=== PATIENT | female | born 2000 | race Caucasian/White ===

== ENCOUNTER 2018-10-27 07:21 | Inpatient (IN) | payer MEDICAID ==
[2018-10-27] MEDS ORDERED: AMPICILLIN 2 GM/NS (PMX) 100 ML (10:07)
[2018-10-27] MEDS ORDERED: MISOPROSTOL 200 MCG TAB PR ×2 (10:30→22:00)
[2018-10-27] MEDS ORDERED: METHYLERGONOVINE 0.2 MG INJ IM ×2 (10:30→22:00)
[2018-10-27] MEDS ORDERED: OXYTOCIN 30 UNITS/LR 500 ML IV ×2 (10:30→22:00)
[2018-10-27] MEDS ORDERED: LIDOCAINE 1% (MPF) 30 ML INJ INJ (10:30)
[2018-10-27] MEDS ORDERED: BUTORPHANOL 2 MG INJ IV (10:30)
[2018-10-27] MEDS ORDERED: CARBOPROST 250 MCG INJ IM ×2 (10:30→22:00)
[2018-10-27 10:56] LABS: AMPHETAMINE/METHAMPHETAMINE Negative (NEGATIVE); BARBITURATES Negative (NEGATIVE); BENZODIAZEPINES Negative (NEGATIVE); CANNABINOIDS Negative (NEGATIVE); COCAINE Negative (NEGATIVE); OPIATES Negative (NEGATIVE)
[2018-10-27] MEDS ORDERED: FENTAnyl 2MCG/ML-ROPIV 0.2% 100 ML BAG EPI (11:00)
[2018-10-27] MEDS ORDERED: NALOXONE (0.4 MG/ML) INJ IV (11:00)
[2018-10-27] MEDS ORDERED: ONDANSETRON 4 MG INJ IV (11:00)
[2018-10-27] MEDS ORDERED: DIPHENHYDRAMINE 50 MG INJ IV (11:00)
[2018-10-27] MEDS: LACTATED RINGER'S 1,000 ML IV (11:21)
[2018-10-27] MEDS: AMPICILLIN 2 GM/NS (PMX) 100 ML IV (11:21)
[2018-10-27] MEDS: OXYTOCIN 30 UNITS/LR 500 ML IV ×3 (11:22→19:59)
[2018-10-27 12:37] LABS: ADD MAN DIFF? NO
[2018-10-27 12:38] LABS: WHITE BLOOD COUNT 11.7 10^3/ul (4.8-10.8)
[2018-10-27 12:38] LABS: BASOPHILS % 0.1 % (0.0-2.0); HEMATOCRIT 34.9 % (37.0-47.0); HEMOGLOBIN 11.1 g/dl (12.0-16.0); LYMPHOCYTES # 0.8 10^3/ul (0.8-2.9); LYMPHOCYTES % 6.7 % (18.0-55.0); MEAN CORPUSCULAR HEMOGLOBIN 27.6 pg (29.0-33.0); MEAN CORPUSCULAR HGB CONC 31.8 g/dl (32.0-37.0); MEAN CORPUSCULAR VOLUME 86.8 fl (72.0-104.0); MEAN PLATELET VOLUME 10.7 fl (7.4-10.4); MONOCYTE # 0.5 10^3/ul (0.3-0.9); MONOCYTES % 4.6 % (0.0-13.0); NEUTROPHIL # 10.3 10^3/ul (1.6-7.5); NEUTROPHILS % 88.1 % (30.0-74.0); PLATELET COUNT 285 10^3/UL (140-415); RED BLOOD COUNT 4.02 10^6/ul (4.20-5.40); RED CELL DISTRIBUTION WIDTH 12.9 % (11.5-14.5)
[2018-10-27 13:00] LABS: INR 0.96; PROTIME 12.9 Sec (11.9-14.9)
[2018-10-27 13:01] LABS: PARTIAL THROMBOPLASTIN TIME 25.8 Sec (23.0-35.0)
[2018-10-27 14:54] LABS: HEPATITIS B SURFACE ANTIGEN NEGATIVE (NEGATIVE)
[2018-10-27] MEDS: AMPICILLIN 1 GM/NS (PMX) 50 ML IV ×2 (14:56→18:55)
[2018-10-27 15:57] LABS: RAPID PLASMA REAGIN NONREACTIVE (NR)
[2018-10-27] MEDS: IBUPROFEN 600 MG TAB PO (20:43)
[2018-10-27] MEDS: LACTATED RINGER'S 1,000 ML IV* (21:43)
[2018-10-27] MEDS ORDERED: ACETAMINOPHEN 325 MG TAB PO (22:00)
[2018-10-27] MEDS ORDERED: SENNA/DOCUSATE NA (8.6MG/50MG) TAB PO (22:00)
[2018-10-27] MEDS ORDERED: HYDROCODONE/APAP (5/325) TAB PO (22:00)
[2018-10-27] MEDS ORDERED: MAGNESIUM HYDROXIDE 30ML CUP PO (22:00)
[2018-10-27] MEDS ORDERED: DIPHENHYDRAMINE 25 MG CAP PO (22:00)
[2018-10-27] MEDS ORDERED: ZOLPIDEM 5 MG TAB PO (22:00)
[2018-10-27] MEDS: IBUPROFEN 800 MG TAB PO (23:24)
[2018-10-27] MEDS: WITCH HAZEL/GLYCERIN PAD PR (23:24)
[2018-10-27] MEDS: BENZOCAINE 20% 56 ML SPRAY TOP (23:24)
[2018-10-28] MEDS: OXYTOCIN 30 UNITS/LR 500 ML IV (00:32)
[2018-10-28] MEDS: LACTATED RINGER'S 1,000 ML IV* ×2 (05:43→13:43)
[2018-10-28] MEDS: IBUPROFEN 800 MG TAB PO ×4 (05:44→23:45)
[2018-10-28 06:45] LABS: ADD MAN DIFF? NO
[2018-10-28 06:59] LABS: WHITE BLOOD COUNT 13.1 10^3/ul (4.8-10.8)
[2018-10-28 06:59] LABS: BASOPHILS % 0.2 % (0.0-2.0); EOSINOPHILS # 0.1 10^3/ul (0.0-0.5); EOSINOPHILS % 0.4 % (0.0-7.0); HEMATOCRIT 29.9 % (37.0-47.0); HEMOGLOBIN 9.9 g/dl (12.0-16.0); LYMPHOCYTES # 1.7 10^3/ul (0.8-2.9); LYMPHOCYTES % 13.2 % (18.0-55.0); MEAN CORPUSCULAR HEMOGLOBIN 27.4 pg (29.0-33.0); MEAN CORPUSCULAR HGB CONC 33.1 g/dl (32.0-37.0); MEAN CORPUSCULAR VOLUME 82.8 fl (72.0-104.0); MONOCYTE # 1.4 10^3/ul (0.3-0.9); MONOCYTES % 10.5 % (0.0-13.0); NEUTROPHIL # 9.9 10^3/ul (1.6-7.5); NEUTROPHILS % 75.3 % (30.0-74.0); PLATELET COUNT 262 10^3/UL (140-415); RED BLOOD COUNT 3.61 10^6/ul (4.20-5.40); RED CELL DISTRIBUTION WIDTH 13.2 % (11.5-14.5)
[2018-10-28] MEDS: SENNA/DOCUSATE NA (8.6MG/50MG) TAB PO ×2 (09:02→21:40)
[2018-10-29] MEDS: IBUPROFEN 800 MG TAB PO ×2 (05:49→11:20)
[2018-10-29] MEDS: LANOLIN HPA 1 PKT TOP (06:28)
[2018-10-29] MEDS: SENNA/DOCUSATE NA (8.6MG/50MG) TAB PO (08:40)
[2018-10-29] MEDS: MEASLES,MUMPS,RUBELLA VACCINE INJ SC* (08:41)
[2018-10-29] MEDS: DIPHTH/TET/ACEL PERTUSS (ADULT) 0.5 ML VIAL IM* (08:41)
[2018-10-29] MEDS: VARICELLA VACCINE LIVE/PF 1,350 UNIT/0.5 ML ML SC* (08:42)
== END 2018-10-29 14:54 | disposition home or self-care (01) | DRG 807 ==
LOC: OBT 07:21 → L-D 07:21 → OBT 08:30 → L-D 08:30 → PP1 21:12
PROC: 10E0XZZ Delivery of Products of Conception, External Approach (ICD-10-PCS; principal; 2018-10-27)
DX: O80 Encounter for full-term uncomplicated delivery (principal); Z37.0 Single live birth; Z3A.38 38 weeks gestation of pregnancy
CPT/HCPCS: 62322; 76818; 80307; 85025; 85610; 85730; 86592; 86850; 86900; 86901; 87340; 90715; 90716